=== PATIENT | male | born 1955 | race Caucasian/White ===

== ENCOUNTER 2016-11-02 07:29 | Emergency (ER) | payer OTHER ==
[~2016-11-02] VITALS: Wt 80.0 kg
[2016-11-02] MEDS ORDERED: ACETAMINOPHEN 500 MG TAB PO STA (07:52)
[2016-11-02] MEDS ORDERED: LEVALBUTEROL (NEB) 1.25 MG/0.5 ML AMP INH STA ×2 (07:52→09:06)
[2016-11-02] MEDS ORDERED: IPRATROPIUM (NEB) 0.5 MG/2.5 ML AMP NEB STA (07:52)
--- NOTE | 2016-11-02 08:03 | ERD ---
ER Documentation Chief Complaint Date/Time DATE: 11/02/16 TIME: 08:01 Chief Complaint fever for the past 3 days with cough and congestion and watery eyes. HPI This 61-year-old male who presents to the emergency department today complaining of intermittent fevers with Hospital of days, cough, congestion and watery eyes. States he took ibuprofen last night. Denies any nausea vomiting or diarrhea. ROS All systems reviewed and are negative except as per history of present illness. Medications Home Meds Active Scripts Oseltamivir Phosphate* (Tamiflu*) 75 Mg Capsule, 75 MG PO BID for 5 Days, CAP Prov:HAKEEM MCDONALD PA-C 11/02/16 Acetaminophen* (Tylophen*) 500 Mg Capsule, 1 CAP PO Q6H Y for PAIN AND OR ELEVATED TEMP, #30 CAP Prov:HAKEEM MCDONALD PA-C 11/02/16 Ibuprofen* (Motrin*) 600 Mg Tab, 600 MG PO Q6, #30 TAB Prov:HAKEEM MCDONALD PA-C 11/02/16 Prednisone* (Prednisone*) 20 Mg Tab, 40 MG PO DAILY for 4 Days, TAB Prov:HAKEEM MCDONALD PA-C 11/02/16 Albuterol Sulfate* (Proair HFA*) 8.5 Gm Hfa.aer.ad, 2 PUFF INH Q4, #1 INHALER Prov:HAKEEM MCDONALD PA-C 11/02/16 Azithromycin* (Zithromax*) 250 Mg Tablet, 250 MG PO .ZPACK DIRECTED, #6 TAB TAKE 500 MG (2 TABS) THE FIRST DAY THEN 250 MG (1 TAB) DAYS 2-5 Prov:HAKEEM MCDONALD PA-C 11/02/16 Allergies Allergies: Coded Allergies: No Known Allergy (Unverified , 11/02/16) PMhx/Soc Medical and Surgical Hx: pt denies Medical Hx, pt denies Surgical Hx Hx Alcohol Use: No (denies) Hx Substance Use: No (denies) Hx Tobacco Use: No (denies) Smoking Status: Never smoker Physical Exam Vitals Vital Signs Date Time Temp Pulse Resp B/P Pulse Ox O2 Delivery O2 Flow Rate FiO2 11/02/16 09:49 103 26 93 21 11/02/16 08:19 81 20 93 21 11/02/16 07:32 101.6 101 18 137/89 95 Physical Exam Const: No acute distress Head: Atraumatic Eyes: Normal Conjunctiva ENT: Normal External Ears, Nose and Mouth. Neck: Full range of motion..~ No meningismus. Resp: Diffuse wheezing in all lung leong bilaterally Cardio: Regular rate and rhythm, no murmurs Abd: Soft, non tender, non distended. Normal bowel sounds Skin: No petechiae or rashes Back: No midline or flank tenderness Ext: No cyanosis, or edema Neur: Awake and alert Psych: Normal Mood and Affect Results 24 hrs Current Medications Medications (Trade) Dose Ordered Sig/Liborio Route PRN Reason Start Time Stop Time Status Last Admin Dose Admin Ipratropium Dixon (Atrovent 0.02% (Neb)) 0.5 mg ONCE STAT NEB 11/02/16 07:52 11/02/16 07:53 DC 11/02/16 08:17 Levalbuterol (Xopenex Neb) 1.25 mg ONCE STAT INH 11/02/16 07:52 11/02/16 07:53 DC 11/02/16 08:17 Acetaminophen (Tylenol Tab) 1,000 mg ONCE STAT PO 11/02/16 07:52 11/02/16 07:53 DC 11/02/16 07:59 Prednisone (Prednisone) 60 mg ONCE ONCE PO 11/02/16 08:30 11/02/16 08:31 DC 11/02/16 08:41 Levalbuterol (Xopenex Neb) 5 mg ONCE STAT INH 11/02/16 09:06 11/02/16 09:07 DC 11/02/16 09:49 Patient: GERTRUDIS FLORES : 1955 Age: 61 Sex: M MR #: [id number] DOS: 11/02/16 0752 Ordering MD: HAKEEM MCDONALD PA-C Location: [facility] Room/Bed: PROCEDURE: XR Chest. CLINICAL INDICATION: Chest pain, asthma TECHNIQUE: Single frontal view of the chest was obtained. COMPARISON: None FINDINGS: The heart is within normal limits. The thoracic aorta is calcified. The lungs are clear. There is no pleural effusion or pneumothorax. RPTAT: AA IMPRESSION: No acute disease. Calcified aorta consistent with atherosclerotic disease. .Cristobal Moran MD, Date Time Electronically viewed and signed by .Cristobal Moran MD, MD on 11/02/2016 08: 26 .S/ CC: HAKEEM MCDONALD PA-C Procedures/MDM This is a 61-year-old male who presents to the emergency department today for fever, cough, congestion. Patient was febrile here in the emergency department. His oxygen saturation is 93%. He did have some wheezing on physical exam and therefore he was given a breathing treatment. Patient's wheezing persisted and was therefore given a another 1 hour continuous spitting treatment. Symptoms improved and oxygen saturation improved to 98%. I also obtained a chest x-ray. Chest x-ray shows no acute disease. There is a calcified aorta consistent with atherosclerotic disease. There is no pleural effusion or pneumothorax. There is no focal consolidation. Low suspicion for PE, abscess, pneumonia , pneumothorax Patient's symptoms at this time consistent with URI versus possible bronchitis versus influenza-like symptoms. Patient was given Tylenol here in the emergency department for his fever. I will give him a prescription for Tylox, Motrin for home. He will also be given a prescription for azithromycin, prednisone, albuterol inhaler as well as Tamiflu. At this time the patient is stable for discharge and outpatient management. Patient should follow up with their PCP in the next 1-2 days. They may return to the emergency department sooner for any persistent or worsening of symptoms. Patient understood and agreed with the plan. I discussed the patient with Dr. Robert is in agreement with the plan.. Departure Diagnosis: Primary Impression: Fever Fever type: unspecified Qualified Code: R50.9 - Fever, unspecified fever cause Additional Impression: Influenza-like symptoms Condition: Fair HAKEEM MCDONALD PA-C Nov 02, 2016 08:02
--- NOTE | 2016-11-02 08:26 | RADRPT ---
PROCEDURE: XR Chest. CLINICAL INDICATION: Chest pain, asthma TECHNIQUE: Single frontal view of the chest was obtained. COMPARISON: None FINDINGS: The heart is within normal limits. The thoracic aorta is calcified. The lungs are clear. There is no pleural effusion or pneumothorax. RPTAT: AA IMPRESSION: No acute disease. Calcified aorta consistent with atherosclerotic disease. .Cristobal Moran MD, MD Date Time Electronically viewed and signed by .Cristobal Moran MD, on 11/02/2016 08:26 .S/
[2016-11-02] MEDS ORDERED: predniSONE 20 MG TAB PO ONE (08:30)
[2016-11-02] MEDS ORDERED: AZIT250T94 PO (10:49)
[2016-11-02] MEDS ORDERED: PRED20TA PO (10:49)
[2016-11-02] MEDS ORDERED: ALBU8.5H3 INH (10:49)
[2016-11-02] MEDS ORDERED: IBUP-1542 PO (10:51)
[2016-11-02] MEDS ORDERED: ACET500C5 PO (10:52)
[2016-11-02] MEDS ORDERED: OSLT75C PO (10:52)
[2016-11-02 11:08] VITALS: BP 124/78; PULSE 101; RESP 18; TEMP 98.1
== END 2016-11-02 11:10 | disposition home or self-care (01) ==
LOC: FTE 07:29
DX: R50.9 Fever, unspecified (principal); R05 Cough; R09.81 Nasal congestion
CPT/HCPCS: 71010; 94644; 94664; 99284; J7512